=== PATIENT | female | born 1990 | race Two or more races ===

== ENCOUNTER 2024-08-12 16:12 | Emergency (ER) | payer OTHER ==
[~2024-08-12] VITALS: Ht 172.7 cm; Wt 86.2 kg
[2024-08-12] MEDS ORDERED: KETOROLAC TROMETHAMINE 30 MG VIAL IM ONE (22:15)
== END 2024-08-12 22:27 | disposition home or self-care (01) ==
LOC: ER 16:14
DX: S00.93XA Contusion of unspecified part of head, initial encounter (principal); X58.XXXA Exposure to other specified factors, initial encounter; Y93.89 Activity, other specified; Y92.9 Unspecified place or not applicable; Y99.9 Unspecified external cause status

== ENCOUNTER 2025-06-12 13:58 | Outpatient (CLI) | payer OTHER | END 2025-06-12 14:06 | disposition home or self-care (01) | LOC: RAD 13:58 | PROVIDERS: ATTEND Obstetrics & Gynecology Gynecology | DX: R10.30 Lower abdominal pain, unspecified (principal); T83.32XA Displacement of intrauterine contraceptive device, initial encounter ==